=== PATIENT | male | born 1945 | race Two or more races ===

== ENCOUNTER 2017-12-11 08:35 | Outpatient (CLI) | payer MEDICARE, BC | END 2017-12-11 23:59 | disposition home or self-care (01) | LOC: WOU 08:35 | PROVIDERS: ATTEND Surgery | PROC: 3E013TZ Introduction of Destructive Agent into Subcutaneous Tissue, Percutaneous Approach (ICD-10-PCS; principal; 2017-12-11) | DX: M72.0 Palmar fascial fibromatosis [Dupuytren] (principal); Z79.899 Other long term (current) drug therapy; Z79.82 Long term (current) use of aspirin; Z95.2 Presence of prosthetic heart valve | CPT/HCPCS: A6402; J3490 ==